=== PATIENT | male | born 1985 | race Caucasian/White ===

== ENCOUNTER 2017-12-29 15:04 | Emergency (ER) | payer BC ==
[~2017-12-29] VITALS: Ht 188 cm; Wt 97.5 kg
--- NOTE | 2017-12-29 15:40 | NUR ---
PT CAME IN WITH CO EXTREME LEFT SIDE FLANK PAIN RADIATES TO ABDOMEN, HEMATURIA, TESTICULAR PAIN X 2 DAYS. SEEN BY MD FOR EVAL. DENIES TRAUMA. SAFETY AND COMFORT MEASURES PROVIDED. WILL MONITOR.
[2017-12-29] MEDS ORDERED: MORPHINE SULFATE INJ 2 MG/ML DISP.SYRIN IV ONE ×2 (16:30→18:00)
[2017-12-29] MEDS ORDERED: ONDANSETRON HCL/PF 4 MG/2 ML VIAL IVP ONE (16:30)
[2017-12-29] MEDS ORDERED: IV NS 0.9% 1,000 ML BAG IV ONE (16:30)
--- NOTE | 2017-12-29 16:30 | NUR ---
IV ACCESS STARTED. MEDICATED ORDERED. PT UNABLE TO GIVE URINE SAMPLE AT THIS TIME.
[2017-12-29] MEDS ORDERED: MORPHINE SULFATE INJ 2 MG/ML DISP.SYRIN ONE ×2 (16:31→18:01)
[2017-12-29] MEDS ORDERED: MORPHINE SULFATE INJ 4 MG/ML DISP.SYRIN ONE ×2 (16:31→18:02)
[2017-12-29] MEDS ORDERED: ONDANSETRON HCL 4 MG/5 ML SOLUTION ONE (16:31)
--- NOTE | 2017-12-29 17:09 | NUR ---
PT ATKEN TO CT.
[2017-12-29] MEDS ORDERED: ONDANSETRON HCL/PF 4 MG/2 ML VIAL ONE (17:45)
[2017-12-29] MEDS ORDERED: KETOROLAC TROMETHAMINE INJ 30 MG/ML VIAL ONE (17:45)
[2017-12-29] MEDS ORDERED: KETOROLAC TROMETHAMINE INJ 30 MG/ML VIAL IV ONE (18:00)
[2017-12-29] MEDS ORDERED: HYDROMORPHONE INJ 0.5 MG/0.5 ML SYRINGE IV ONE (18:00)
[2017-12-29] MEDS ORDERED: ONDANSETRON HCL/PF 4 MG/2 ML VIAL IV ONE (18:00)
[2017-12-29 18:28] LABS: APPEARANCE,URINE Clear (CLEAR); BILIRUBIN,URINE SMALL (NEGATIVE); BLOOD, URINE Small Ery/uL (NEGATIVE); COLOR,URINE Dark (YELLOW); KETONES,URINE 15 (NEGATIVE); LEUKOCYTE ESTERASE ,URINE Negative (NEGATIVE); NITRITE, URINE Negative (NEGATIVE); PROTEIN,URINE 100 mg/dl (NEGATIVE); UGLUCOSE Negative (NEGATIVE)
[2017-12-29 18:29] LABS: PH,URINE >9.0 (5.0-8.0)
[2017-12-29 18:48] LABS: BACTERIA,URINE Few /HPF (None Seen)
[2017-12-29 18:49] LABS: SQUAMOUS EPITHELIAL CELL,UR Few /HPF (None Seen); URINE AMORPHOUS PHOSPHATES Few /HPF (None Seen)
[2017-12-29 18:50] LABS: MUCUS,URINE Many /LPF (None Seen)
--- NOTE | 2017-12-29 19:00 | NUR ---
IV removed. Catheter intact and site benign. Pressure and 4x4 applied to site. No bleeding noted.
[2017-12-29 19:14] VITALS: BP 130/69
--- NOTE | 2017-12-29 19:14 | NUR ---
Patient discharged to home in stable condition. Written and verbal after care instructions given. Patient verbalizes understanding of instruction.
== END 2017-12-29 19:15 | disposition home or self-care (01) ==
LOC: ER 15:08
DX: N20.0 Calculus of kidney (principal); R11.0 Nausea; R19.7 Diarrhea, unspecified
CPT/HCPCS: 81000-TC; J1885; J2270; J2405; J7030; Q0162